=== PATIENT | male | born 1995 | race Caucasian/White ===

== ENCOUNTER 2023-08-18 17:00 | Emergency (ER) | payer SELFPAY ==
[~2023-08-18] VITALS: Ht 167.6 cm; Wt 65.8 kg
[2023-08-18 17:04] VITALS: BP_SYST 134; PULSE 96; RESP 18; TEMP 99.1; O2SAT 98
[2023-08-18 17:27] VITALS: BP_SYST 131; PULSE 74; RESP 18; TEMP 99.1; O2SAT 98
== END 2023-08-18 17:27 ==
LOC: SED 17:00
DX: Z02.89 Encounter for other administrative examinations (principal); Z79.899 Other long term (current) drug therapy
CPT/HCPCS: 99283